=== PATIENT | female | born 1940 | race Caucasian/White ===

== ENCOUNTER 2018-01-30 08:29 | Outpatient (CLI) | payer MEDICARE, OTHER ==
--- NOTE | 2018-01-30 11:10 | ULT ---
VENOUS DUPLEX SONOGRAM BILATERAL LOWER EXTREMITIES: HISTORY: Bilateral leg pain and edema. FINDINGS: Each common femoral vein and greater saphenous junction were evaluated, along with each femoral, deep femoral, popliteal, and posterior tibial vein. There is good color and spectral Doppler flow, compr ession, and augmentation. IMPRESSION: No sonographic evidence of deep venous thrombosis within either lower extremity. POS: [facility]
== END 2018-01-30 08:30 | disposition home or self-care (01) ==
LOC: NAV ULT 08:29
PROVIDERS: ATTEND Neurological Surgery
DX: M79.604 Pain in right leg (principal); M79.605 Pain in left leg
CPT/HCPCS: 93970

== ENCOUNTER 2018-04-20 01:30 | Emergency (ER) | payer MEDICARE, OTHER ==
[2018-04-20] MEDS ORDERED: Nitroglycerin 0.4 MG TAB (25 Tab Bottle) ONE (01:50)
[2018-04-20 01:58] LABS: #Basophils 0.1 thou/uL (0.0-0.2); #Eosinphils 0.4 thou/uL (0.0-0.7); #Monocytes 0.8 thou/uL (0.11-0.59); #Neutrophils 4.7 thou/uL (1.40-6.50); %Basophils 1.2 % (0.0-1.0); %Eosinophils 4.2 % (0.0-10.0); %Lymphocytes 33.4 % (21.0-51.0); %Monocytes 8.5 % (0.0-10.0); %Neutrophils 52.7 % (42.0-75.0); Mean Corpuscular HGB CONC 33.1 g/dL (32.0-36.0); Mean Corpuscular Hemoglobin 29.5 pg (27.0-31.0); Mean Platelet Volume 7.9 fL (7.4-10.4); Platelet Count 255 thou/uL (130-400); RBC Distribution Width 11.7 % (11.5-14.5); White Blood Cell (WBC) Count 8.9 thou/uL (4.8-10.8)
[2018-04-20 02:21] LABS: Prothrombin Time 13.5 SEC (12.0-14.7)
[2018-04-20 02:22] LABS: PTT 32.6 SEC (22.9-36.1)
[2018-04-20 02:29] LABS: ALT (SGPT) 15 U/L (8-55); AST (SGOT) 20 U/L (5-34); Albumin 3.8 g/dL (3.4-4.8); Alkaline Phosphatase 58 U/L (40-150); Anion Gap 16 mmol/L (10-20); BUN (Urea Nitrogen) 29 mg/dL (9.8-20.1); Bilirubin, Total 0.4 mg/dL (0.2-1.2); Calc. Creatinine Clearance 0 mL/min (70-130); Calcium 9.1 mg/dL (7.8-10.44); Carbon Dioxide 24 mmol/L (23-31); Chloride 105 mmol/L (98-107); Estimated GFR-MDRD 27; Glucose 120 mg/dL (83-110); Potassium 3.8 mmol/L (3.5-5.1); Protein, Total 6.8 g/dL (6.0-8.3); Sodium 141 mmol/L (136-145)
[2018-04-20 02:31] LABS: CKMB 1.3 ng/mL (0-6.6); Troponin I 0.157 ng/mL (< 0.028)
[2018-04-20] MEDS ORDERED: Enoxaparin Sodium 100 MG/ML SYRINGE ONE (02:58)
[2018-04-20] MEDS ORDERED: Cephalexin 250 MG CAP ONE (03:14)
--- NOTE | 2018-04-20 07:57 | RAD ---
SINGLE VIEW OF THE CHEST: COMPARISON: 01/25/14. HISTORY: Chest pain. FINDINGS: Single view of the chest shows a normal sized cardiomediastinal silhouette. There is no evidence of c onsolidation, mass, or pleural effusion. Hardware is seen in the cervical spine. The patient has a r emote healed left clavicle fracture. IMPRESSION: No evidence of acute cardiopulmonary disease. POS: [facility]
== END 2018-04-20 03:22 | disposition short-term general hospital (02) ==
LOC: NAV ERS 01:30
DX: I21.4 Non-ST elevation (NSTEMI) myocardial infarction (principal); L03.115 Cellulitis of right lower limb; E11.9 Type 2 diabetes mellitus without complications; K21.9 Gastro-esophageal reflux disease without esophagitis; I10 Essential (primary) hypertension; E78.5 Hyperlipidemia, unspecified; G83.81 Brown-Sequard syndrome; J42 Unspecified chronic bronchitis; Z79.891 Long term (current) use of opiate analgesic; Z79.899 Other long term (current) drug therapy; Z79.82 Long term (current) use of aspirin; Z87.01 Personal history of pneumonia (recurrent)
CPT/HCPCS: 36415; 71045; 80053; 82553; 84484; 85025; 85610; 85730; 93005; 96372; J1650